=== PATIENT | male | born 1960 | race Caucasian/White ===

== ENCOUNTER 2020-09-13 11:08 | Outpatient (CLI) | payer OTHER | END 2020-09-13 11:09 | disposition home or self-care (01) | LOC: BICRAD 11:08 | PROVIDERS: ATTEND Specialist | DX: M25.522 Pain in left elbow (principal) ==

== ENCOUNTER 2023-07-23 12:33 | Outpatient (CLI) | payer OTHER | END 2023-07-23 12:34 | disposition home or self-care (01) | LOC: MRI 12:33 | PROVIDERS: ATTEND Orthopaedic Surgery | DX: M75.101 Unspecified rotator cuff tear or rupture of right shoulder, not specified as traumatic (principal); M75.102 Unspecified rotator cuff tear or rupture of left shoulder, not specified as traumatic; S46.811A Strain of other muscles, fascia and tendons at shoulder and upper arm level, right arm, initial encounter; M75.111 Incomplete rotator cuff tear or rupture of right shoulder, not specified as traumatic; M19.011 Primary osteoarthritis, right shoulder; M25.411 Effusion, right shoulder; M67.813 Other specified disorders of tendon, right shoulder ==

== ENCOUNTER 2024-03-16 12:24 | Outpatient (CLI) | payer OTHER | END 2024-03-16 12:25 | disposition home or self-care (01) | LOC: MRI 12:24 | PROVIDERS: ATTEND Orthopaedic Surgery | DX: M75.101 Unspecified rotator cuff tear or rupture of right shoulder, not specified as traumatic (principal) ==